=== PATIENT | female | born 1980 | race Caucasian/White ===

== ENCOUNTER 2017-05-12 18:31 | Emergency (ER) | payer OTHER ==
[~2017-05-12] VITALS: Ht 167.6 cm; Wt 147.9 kg
[~2017-05-12 18:31] MED LIST: Antivert25 MG PO; Hydrochloroth12.5 MG PO; Multivitamin1 EAC1 PO; OMEP20ER; ONDA4ODT; Zofran Odt4 MG SL
[2017-05-12] MEDS ORDERED: LABE200 PO (19:09)
[2017-05-12] MEDS ORDERED: Aspir 8181 MG PO (19:09)
[2017-05-12] MEDS ORDERED: RANI150 PO (19:47)
[2017-05-12] MEDS ORDERED: Verotin-Gr Cap1 EACH PO (19:47)
[2017-05-12 20:06] LABS: Source, Urine Clean Catch
[2017-05-12 20:17] LABS: Bilirubin, Urine Neg (Neg); Blood, Urine Neg (Neg); Glucose Qualitative, Urine Neg (Neg); Ketones, Urine Neg (Neg); Leukocyte Esterase, Urine Neg (Neg); Nitrite, Urine Neg (Neg); Protein, Urine Neg (Neg); Urobilinogen, Urine NORM (Normal)
[2017-05-12 20:24] LABS: Appearance, Urine Clear (Clear); Color, Urine Yellow (P-Yellow)
[2017-12-04] MEDS ORDERED: LABE100 PO (09:18)
== END 2017-05-12 21:19 | disposition home or self-care (01) ==
LOC: ER 18:31
PROVIDERS: Emergency Medicine
DX: O14.92 Unspecified pre-eclampsia, second trimester (principal); O99.89 Other specified diseases and conditions complicating pregnancy, childbirth and the puerperium; R10.2 Pelvic and perineal pain; Z3A.19 19 weeks gestation of pregnancy
CPT/HCPCS: 76815; 81003; 99284

== ENCOUNTER 2017-09-25 08:17 | Inpatient (IN) | payer OTHER ==
[~2017-09-25] VITALS: Ht 43.2 cm; Wt 151.0 kg
[~2017-09-25 08:17] MED LIST changes: +Aspir 8181 MG PO; +LABE200 PO; +RANI150 PO; +Verotin-Gr Cap1 EACH PO
[2017-09-25] MEDS ORDERED: LABE100 PO (08:47)
[2017-09-25 09:00] LABS: BASOPHILS ABSOLUTE AUTO 0.01 K/mm3 (0.00-0.23); BASOPHILS PERCENT AUTO 0 % (0-2); EOSINOPHILS ABSOLUTE AUTO 0.04 K/mm3 (0.00-0.68); EOSINOPHILS PERCENT AUTO 1 % (0-6); Hematocrit 33.3 % (33.0-51.0); Hemoglobin 11.6 g/dL (11.5-16.0); IMMATURE GRAN ABSOLUTE AUTO 0.03 K/mm3 (0.00-0.10); IMMATURE GRAN PERCENT AUTO 1 % (0-1); LYMPHOCYTES ABSOLUTE AUTO 1.19 K/mm3 (0.84-5.20); LYMPHOCYTES PERCENT AUTO 20 % (21-46); MONOCYTES ABSOLUTE AUTO 0.32 K/mm3 (0.16-1.47); MONOCYTES PERCENT AUTO 5 % (4-13); Mean Corpuscular HGB Conc 34.8 g/dL (31.5-36.5); Mean Corpuscular Volume 89 fL (80-100); NEUTROPHILS ABSOLUTE AUTO 4.37 K/mm3 (1.96-9.15); NEUTROPHILS PERCENT AUTO 73 % (41-73); Platelet Count 168 K/mm3 (150-400); RDW Coefficient Variation 13.1 % (11.7-14.2); RDW Standard Deviation 42.6 fL (35.1-46.3); Red Blood Cell Count 3.74 M/mm3 (3.80-5.20); White Blood Cell Count 5.96 K/mm3 (4.00-11.30)
[2017-09-27 05:57] LABS: BASOPHILS ABSOLUTE AUTO 0.01 K/mm3 (0.00-0.23); BASOPHILS PERCENT AUTO 0 % (0-2); EOSINOPHILS ABSOLUTE AUTO 0.08 K/mm3 (0.00-0.68); EOSINOPHILS PERCENT AUTO 1 % (0-6); Hematocrit 28.6 % (33.0-51.0); Hemoglobin 9.9 g/dL (11.5-16.0); IMMATURE GRAN ABSOLUTE AUTO 0.01 K/mm3 (0.00-0.10); IMMATURE GRAN PERCENT AUTO 0 % (0-1); LYMPHOCYTES ABSOLUTE AUTO 1.29 K/mm3 (0.84-5.20); LYMPHOCYTES PERCENT AUTO 19 % (21-46); MONOCYTES PERCENT AUTO 6 % (4-13); Mean Corpuscular HGB 31.2 pg (26.0-34.0); Mean Corpuscular HGB Conc 34.6 g/dL (31.5-36.5); Mean Corpuscular Volume 90 fL (80-100); Mean Platelet Volume 10.2 fL (9.1-12.4); NEUTROPHILS PERCENT AUTO 74 % (41-73); Platelet Count 150 K/mm3 (150-400); RDW Coefficient Variation 13.2 % (11.7-14.2); RDW Standard Deviation 43.2 fL (35.1-46.3); Red Blood Cell Count 3.17 M/mm3 (3.80-5.20); White Blood Cell Count 6.79 K/mm3 (4.00-11.30)
== END 2017-09-27 18:00 | disposition home or self-care (01) | DRG 774 ==
LOC: BC 08:17
PROVIDERS: Nurse Practitioner Obstetrics & Gynecology
PROC: 3E0P7VZ Introduction of Hormone into Female Reproductive, Via Natural or Artificial Opening (ICD-10-PCS; 2017-09-25)
PROC: 10E0XZZ Delivery of Products of Conception, External Approach (ICD-10-PCS; principal; 2017-09-26)
PROC: 0HQ9XZZ Repair Perineum Skin, External Approach (ICD-10-PCS; 2017-09-26)
PROC: 3E0R3BZ Introduction of Anesthetic Agent into Spinal Canal, Percutaneous Approach (ICD-10-PCS; 2017-09-26)
PROC: 00HU33Z Insertion of Infusion Device into Spinal Canal, Percutaneous Approach (ICD-10-PCS; 2017-09-26)
DX: O10.02 Pre-existing essential hypertension complicating childbirth (principal); Z68.43 Body mass index [BMI] 50.0-59.9, adult; E66.01 Morbid (severe) obesity due to excess calories; O99.214 Obesity complicating childbirth; O70.0 First degree perineal laceration during delivery; Z3A.39 39 weeks gestation of pregnancy; Z37.0 Single live birth
CPT/HCPCS: 36415; 51702; 81003; 85025; 86900; 86901; J1885; J2405; J2590; J3010; J7120

== ENCOUNTER 2017-12-06 08:43 | Day surgery (SDC) | payer OTHER ==
[~2017-12-06] VITALS: Ht 167.6 cm; Wt 149.2 kg
[~2017-12-06 08:43] MED LIST changes: +LABE100 PO
[2017-12-06] MEDS ORDERED: SERT100 PO (09:14)
== END 2017-12-06 23:40 | disposition home or self-care (01) ==
LOC: ORSCMMR 08:43 → ORD 10:15 → ORSCMMR 10:15
PROVIDERS: Obstetrics & Gynecology
PROC: 0UT74ZZ Resection of Bilateral Fallopian Tubes, Percutaneous Endoscopic Approach (ICD-10-PCS; principal; 2017-12-06 10:15)
DX: Z30.2 Encounter for sterilization (principal); E66.01 Morbid (severe) obesity due to excess calories; Z68.43 Body mass index [BMI] 50.0-59.9, adult; Z79.899 Other long term (current) drug therapy
CPT/HCPCS: 88302; J0690; J1100; J1885; J2250; J2405; J2710; J3010; J7030; J7120

== ENCOUNTER → 2022-05-31 | Outpatient (CLI) | payer OTHER ==
[~2022-05-31] MED LIST changes: +SERT100 PO
[2022-06-05 09:10] LABS: HPV 16 Negative (Negative); HPV 18 Negative (Negative); HPV OTHER HR TYPES Negative (Negative)
== END | disposition home or self-care (01) ==
LOC: LAB SHORT 15:21 → LAB 15:21
PROVIDERS: Family Medicine
DX: Z01.419 Encounter for gynecological examination (general) (routine) without abnormal findings (principal)
CPT/HCPCS: 87624; G0145

== ENCOUNTER 2023-05-07 10:21 | Day surgery (SDC) | payer OTHER ==
[~2023-05-07] VITALS: Ht 167.6 cm; Wt 148.5 kg
[2023-05-07] MEDS ORDERED: LISI20 PO (11:44)
[2023-05-07] MEDS ORDERED: OMEP20ER (11:44)
--- NOTE | 2023-05-07 11:58 | NUR ---
05/07/23 [place] CALL LIGHT WITHIN REACH.
[2023-05-07 13:17] VITALS: BP 138/79
== END 2023-05-07 13:41 | disposition home or self-care (01) ==
LOC: ORSCSDS 10:21
PROVIDERS: Orthopaedic Surgery
PROC: 01N54ZZ Release Median Nerve, Percutaneous Endoscopic Approach (ICD-10-PCS; principal; 2023-05-07 12:30)
DX: G56.01 Carpal tunnel syndrome, right upper limb (principal); M77.01 Medial epicondylitis, right elbow; D64.9 Anemia, unspecified; F32.9 Major depressive disorder, single episode, unspecified; Z87.891 Personal history of nicotine dependence; Z79.899 Other long term (current) drug therapy
CPT/HCPCS: A9270; J2250; J7120

== ENCOUNTER 2025-01-03 22:53 | Observation (INO) | payer OTHER ==
[~2025-01-03] VITALS: Ht 165.1 cm; Wt 121.6 kg
[~2025-01-03 22:53] MED LIST changes: +LISI20 PO; +Prozac40 MG PO; +ZYRTEC10 M2 PO
[2025-01-03] MEDS ORDERED: Ondansetron HCl 2 MG / ML 2ML Vial ONE (23:31)
[2025-01-03] MEDS ORDERED: Ondansetron HCl 2 MG / ML 2ML Vial IV ONE (23:35)
[2025-01-04] VITALS (11 sets, daily range): BP systolic 131–167; BP diastolic 82–102
[2025-01-04 00:30] LABS: BASOPHILS ABSOLUTE AUTO 0.02 K/mm3 (0.00-0.23); BASOPHILS PERCENT AUTO 0 % (0-2); EOSINOPHILS ABSOLUTE AUTO 0.12 K/mm3 (0.00-0.68); EOSINOPHILS PERCENT AUTO 2 % (0-6); Hematocrit 38.9 % (33.0-51.0); Hemoglobin 13.6 g/dL (11.5-16.0); IMMATURE GRAN ABSOLUTE AUTO 0.02 K/mm3 (0.00-0.10); IMMATURE GRAN PERCENT AUTO 0 % (0-1); LYMPHOCYTES ABSOLUTE AUTO 1.60 K/mm3 (0.84-5.20); LYMPHOCYTES PERCENT AUTO 22 % (21-46); MONOCYTES ABSOLUTE AUTO 0.39 K/mm3 (0.16-1.47); MONOCYTES PERCENT AUTO 6 % (4-13); Mean Corpuscular HGB Conc 35.0 g/dL (31.5-36.5); Mean Corpuscular Volume 87 fL (80-100); NEUTROPHILS ABSOLUTE AUTO 4.99 K/mm3 (1.96-9.15); NEUTROPHILS PERCENT AUTO 70 % (41-73); NRBC ABSOLUTE 0.00 K/mm3 (0.00-0.02); NRBC Auto 0.0 /100 WBC (0.0-0.2); Platelet Count 184 K/mm3 (150-400); RDW Coefficient Variation 12.8 % (11.7-14.2); RDW Standard Deviation 40.3 fL (35.1-46.3)
[2025-01-04 00:49] LABS: Alanine Aminotransfer (ALT/SGP 19.0 U/L (12-78); Albumin, Blood 3.4 g/dL (3.4-5.0); Albumin/Globulin Ratio 1.0 (0.8-1.8); Anion Gap 11.0 mmol/L (3-11); Aspartate Aminotrans (AST/SGOT 13.0 U/L (12-37); Bilirubin, Total 0.3 mg/dL (0.1-1.0); Blood Urea Nitrogen 15.0 mg/dL (8-24); CO2, Blood 23.0 mmol/L (21-32); Calcium, Blood 8.9 mg/dL (8.5-10.1); Chloride, Blood 108.0 mmol/L (98-108); Creatinine, Blood 0.6 mg/dL (0.40-1.00); Globulin, Blood 3.3 g/dL (2.2-4.0); Glucose, Blood 142.0 mg/dL (70-99); Potassium, Blood 3.8 mmol/L (3.5-5.5); Sodium, Blood 138.0 mmol/L (136-145); Total Protein, Blood 6.7 g/dL (6.4-8.2)
[2025-01-04] MEDS ORDERED: FentaNYL Citrate 50 MCG/ML 2 ML Injection IV PRN ×2 (01:45→19:45)
[2025-01-04] MEDS ORDERED: NS 1,000 ML IV SCH (02:00)
[2025-01-04] MEDS ORDERED: HYDROmorphone HCl/Pf 1MG SYR IV PRN ×5 (02:05→20:25)
[2025-01-04] MEDS ORDERED: Metoclopramide HCl 5MG / ML 2ML Vial IV ONE (02:40)
[2025-01-04] MEDS ORDERED: NS 1,000 ML IV ONE ×2 (03:25→05:15)
[2025-01-04] MEDS ORDERED: Ondansetron HCl 2 MG / ML 2ML Vial IV PRN ×2 (03:25→10:55)
[2025-01-04] MEDS ORDERED: Ampicillin Sod/Sulbactam Sod 3 GM in NS 100 ML IV ONE (03:25)
--- NOTE | 2025-01-04 04:18 | NUR ---
PT ARRIVES TO FLOOR VIA WC FROM ED. SPOUSE AT BEDSIDE. PT IN SEVERE PAIN DURING ASSESSMENT. PT INDEPENDENT TO RESTROOM. PT NPO IN ANTICIPATION OF SURGERY TODAY. PT CHG BATH AND NASAL SWAB COMPLETED; MOUTH RINSE DEFERRED DUE TO SEVERE NAUSEA.
[2025-01-04] MEDS ORDERED: Adipex-P37.5 M1 PO (04:49)
[2025-01-04] MEDS ORDERED: Naltrexone HCl50 MG PO (04:49)
--- NOTE | 2025-01-04 06:59 | NUR ---
SHIFT SUMMARY NO ACUTE EVENTS AFTER ARRIVAL TO FLOOR. PT RESTING AND PENDING SURGERY
[2025-01-04] MEDS ORDERED: FLU VACC TS2025-26(6MOS UP)/PF 45 MCG/0.5 ML SYRINGE IM ONE (10:55)
[2025-01-04] MEDS ORDERED: Ketorolac Tromethamine 15mg Vial IV PRN (11:10)
[2025-01-04] MEDS ORDERED: FLU VACC TS2025-26(6MOS UP)/PF 45 MCG/0.5 ML SYRINGE IM SCH (11:15)
[2025-01-04 12:53] LABS: Source, Urine Clean Catch
[2025-01-04 12:58] LABS: Bilirubin, Urine Neg (Neg); Color, Urine Yellow (P-Yellow); Glucose Qualitative, Urine Neg (Neg); Ketones, Urine Neg (Neg); Leukocyte Esterase, Urine 1+ (Neg); Protein, Urine 1+ (Neg); Specific Gravity, Urine 1.025 (1.003-1.022); Urobilinogen, Urine NORM (Normal)
[2025-01-04 13:07] LABS: Red Blood Cells, Urine 0-2 /hpf (0-2)
[2025-01-04] MEDS ORDERED: Bupivacaine 0.5% HCl 5 MG/ML 30MLVIAL ONE (18:02)
--- NOTE | 2025-01-04 18:22 | NUR ---
PT SUMMARY; PT MEDICATED OFTEN FOR PAIN, TORADOL SEEMED TO HELP BETTER, MEDICATED FOR NAUSEA WELL. PT STILL AWAITING FOR SURGERY. PT KEPT NPO. PT INDEPENDENT IN THE ROOM. VITALS HAS BEEN STABLE. PT CALLS APPROPRIATELY. WILL REPORT TO ONCOMING SHIFT
[2025-01-04] MEDS ORDERED: Dexamethasone Sod Phos 10 MG/ML 1ML VIAL ONE (18:50)
[2025-01-04] MEDS ORDERED: FentaNYL Citrate 50 MCG/ML 2 ML Injection ONE ×2 (18:50→19:20)
[2025-01-04] MEDS ORDERED: Ondansetron HCl 2 MG / ML 2ML Vial ONE (18:50)
[2025-01-04] MEDS ORDERED: Rocuronium Bromide 10 MG/ML 5ML Injection IV ONE ×2 (18:50→19:46)
[2025-01-04] MEDS ORDERED: CeFAZolin Sodium 3,000 MG VIAL ONE (18:58)
[2025-01-04] MEDS ORDERED: CeFAZolin Sodium 3,000 MG in NS 100 ML IV ONE (19:00)
[2025-01-04] MEDS ORDERED: HYDROmorphone HCl/Pf 1MG SYR ONE (20:11)
[2025-01-04] MEDS ORDERED: Ketorolac Tromethamine 30mg Vial ONE (20:13)
[2025-01-04] MEDS ORDERED: Sugammadex Sodium 200 MG/2ML SDV (100 MG/ML) ONE (20:27)
--- NOTE | 2025-01-04 20:45 | NUR ---
REPORT GIVEN TO JEREL ANG TO ASSUME CARE OF PT AT THIS TIME. PT STILL IN OR.
--- NOTE | 2025-01-04 21:30 | NUR ---
ARRIVAL BACK TO ROOM FROM PACU AT 2130. PT A/O X4, VERY ALERT, PT MOTIVATED TO MOVE FROM GURNEY TO BED WITHOUT SLIDER SHEET ON HER OWN. PT'S LAP SITES C/D/I X4 WITH WOUND GLUE. PT REPORTS PAIN 3/10 AND TOLERABLE. ORIENTED TO ROOM AND CALL LIGHT, S.O. AT BEDSIDE.
[2025-01-05 00:29] VITALS: BP 131/86
[2025-01-05 03:52] VITALS: BP 129/92
--- NOTE | 2025-01-05 05:09 | NUR ---
SHIFT SUMMARY NOC. PT POD 1 FOR LAP SHANON. PT'S 4 LAP SITES ARE C/D/I WITH WOUND GLUE. PT MEDICATED FOR PAIN WITH REPORTED RELIEF OF SX. PT DENIES NAUSEA/VOMITING AND TOLERATING CLEARS AT THIS TIME. PT VOIDING URINE AND AMBULATING WELL. MAKES NEEDS KNOWN, CALL LIGHT IN REACH.
[2025-01-05] MEDS ORDERED: Acetaminophen325 M1 PO (07:58)
[2025-01-05] MEDS ORDERED: OXYC5 PO (07:59)
[2025-01-05 08:02] VITALS: BP 151/93
[2025-01-05] MEDS ORDERED: Enoxaparin 40 MG/0.4 ML SYR SC SCH (09:00)
--- NOTE | 2025-01-05 10:25 | NUR ---
DC DC'D HOME, DC INSTRUCTIONS GIVEN, VERBALIZED UNDERSTANDING, BELONGINGS GIVEN TO PT.
== END 2025-01-05 10:09 | disposition home or self-care (01) ==
LOC: ER 22:53 → SURS 22:54
PROVIDERS: Emergency Medicine; Surgery; ADMIT Surgery
PROC: BF52200 Other Imaging of Gallbladder using Fluorescing Agent, Indocyanine Green Dye, Intraoperative (ICD-10-PCS; principal; 2025-01-04 19:00)
PROC: 0FT44ZZ Resection of Gallbladder, Percutaneous Endoscopic Approach (ICD-10-PCS; principal; 2025-01-04 19:00)
DX: K80.12 Calculus of gallbladder with acute and chronic cholecystitis without obstruction (principal); K82.A1 Gangrene of gallbladder in cholecystitis; I10 Essential (primary) hypertension; E66.9 Obesity, unspecified; Z68.41 Body mass index [BMI] 40.0-44.9, adult; Z87.891 Personal history of nicotine dependence; Z79.899 Other long term (current) drug therapy; Z88.8 Allergy status to other drugs, medicaments and biological substances
CPT/HCPCS: 76705; 80053; 81001; 83690; 84703; 85025; 87086; 88304; 93005; 93010; 94760; 96372; 96374; 96375; 96376; 99285-25; A9270; G0378; J0295; J0690; J1100; J1171; J1650; J1885; J2405; J2704; J2765; J3010; J7030; J7120